=== PATIENT | male | born 1965 | race Caucasian/White ===

== ENCOUNTER 2017-11-03 15:46 | Emergency (ER) | payer OTHER ==
[~2017-11-03] VITALS: Ht 182.9 cm; Wt 88.5 kg
[2017-11-03 15:48] VITALS: BP 133/81; PULSE 90; RESP 16; TEMP 97.8; O2SAT 95
--- NOTE | 2017-11-03 15:52 | PD ---
HPI Chief Complaint: Laceration/Skin Injury Time Seen by Provider: 15:49 Travel History International Travel<30 days: No Contact w/Intl Traveler<30days: No History of Present Illness HPI 52 year old male presents to the emergency department for evaluation of a laceration to the left lower leg that occurred just prior to arrival. Patient arrived via EMS. Patient states he was stepping off his boat trailer when a piece of metal cut his left lower leg. Patient denies any chronic medical problems and takes no prescribed medications. He states his pain is 2/10, aching, without radiation. He states his tetanus immunization is up to date. He denies any loss of range of motion or any other injury. Moderate severity. [facility] Social History Alcohol Use: Yes Tobacco Use: Yes Substance Use: No Allergies-Medications (Allergen,Severity, Reaction): Coded Allergies: No Known Allergies (Unverified , 11/03/17) Reported Meds & Prescriptions Reported Meds & Active Scripts Active Bactroban Topical (Mupirocin) 22 Gm Cream 1 Applic TOPICAL BID Keflex (Cephalexin) 500 Mg Capsule 500 Mg PO Q8H 10 Days Ibuprofen 800 Mg Tab 800 Mg PO TID PRN Review of Systems Except as stated in HPI: all other systems reviewed are Neg Physical Exam Narrative GENERAL: Well-nourished, well-developed male patient, afebrile. SKIN: Focused skin assessment warm/dry. Patient has a 15 cm laceration to the left lower leg in a J-shape. It extends through the subcutaneous tissue, but not into the muscle. No active bleeding. HEAD: Normocephalic. Atraumatic. EYES: No scleral icterus. No injection or drainage. NECK: Supple, trachea midline. No JVD or lymphadenopathy. CARDIOVASCULAR: Regular rate and rhythm without murmurs, gallops, or rubs. Left pedal pulse 2+. RESPIRATORY: Breath sounds equal bilaterally. No accessory muscle use. Lung sounds are clear to auscultation. MUSCULOSKELETAL: No cyanosis, or edema. Patient has full ROM of all digits of the left foot and of the left ankle. BACK: No obvious deformity. Data Data Last Documented VS Vital Signs Date Time Temp Pulse Resp B/P (MAP) Pulse Ox O2 Delivery O2 Flow Rate FiO2 11/03/17 15:48 97.8 90 16 133/81 (98) 95 Orders Orders Acetamin-Hydrocod 325-5 Mg (Two Dot 5-325 (11/03/17 16:00) Lidocai-Epi 1%-1:100,000 Inj (Xylocaine- (11/03/17 16:00) MDM Medical Decision Making Medical Screen Exam Complete: Yes Emergency Medical Condition: Yes Medical Record Reviewed: Yes Differential Diagnosis laceration vs. tendon laceration vs. foreign body Narrative Course 52 year old male presents to the emergency department for evaluation of a laceration to his left lower leg that occurred just prior to arrival. Patient has a 15 cm laceration in the shape of a J to the left lower leg. He gives verbal consent for laceration repair. Patient will be discharged with a prescription for Ibuprofen for pain and Keflex for prophylaxis. Patient is instructed on proper wound care. The patient was discharged in stable condition with instructions, including return instructions and follow up instructions. Procedures Procedure Narrative LACERATION LOCATION: left lower leg LENGTH: 15 cm NUMBER OF STITCHES/CONNIE: 13 simple interrupted sutures, 2 vertical mattress sutures REPAIR: The area of the laceration was prepped with Betadine and sterilely draped. The laceration was infiltrated with 1% lidocaine with epinephrine. The wound was copiously irrigated and explored without evidence of foreign body, tendon injury or neurovascular injury. The wound was closed using 3-0 Prolene. This was a single layer repair. A sterile dressing was applied. The patient was advised to keep the dressing clean and dry. Patient tolerated the procedure well. Diagnosis Primary Impression: Leg laceration Qualified Codes: S81.812A - Laceration without foreign body, left lower leg, initial encounter Referrals: Primary Care Physician call for appointment Patient Instructions: Care For Your Stitches (ED), General Instructions, Laceration (ED), Narcotic given in the ED Departure Forms: Tests/Procedures, Work Release Enter return to work date: Nov 06, 2017 Additional Instructions: Clean laceration twice daily with soap and water and apply prescribed antibiotic ointment. Keep clean and dry. No swimming or hot tubs until healed. Take antibiotic as directed until gone. Take Ibuprofen as directed as needed with food for pain. Suture removal in 10-14 days. You may follow up with your primary care physician or return here for this. Return to the emergency department for any acute, worsening of symptoms. Med/Other Pt SpecificInfo: Prescription(s) given Scripts Doxycycline Hyclate (Doxycycline Hyclate) 100 Mg Cap 100 MG PO BID for Infection, #20 CAP 0 Refills Prov: Mary Ruelas 11/03/17 Mupirocin Topical (Bactroban Topical) 22 Gm Cream 1 APPLIC TOPICAL BID for Mgmt Bacterial Infection, #1 TUBE 0 Refills Prov: Mary Ruelas 11/03/17 Ibuprofen (Ibuprofen) 800 Mg Tab 800 MG PO TID Y for PAIN SCALE 1 TO 10, #21 TAB 0 Refills Prov: Mary Ruelas 11/03/17 Disposition: 01 DISCHARGE HOME Condition: Stable Mary Ruelas Nov 03, 2017 15:52
[2017-11-03] MEDS ORDERED: IBUP1TAB7 PO (15:58)
[2017-11-03] MEDS ORDERED: CEPH-460 PO ×2 (15:58→16:00)
[2017-11-03] MEDS ORDERED: MUPI2%T TOPICAL (16:00)
[2017-11-03] MEDS ORDERED: LIDOCAINE 1%/EPINEPHrine 1:100,000 SOLN 20 ML VIAL INFIL ONE (16:00)
[2017-11-03] MEDS ORDERED: ACETAMINOPHEN/HYDROcodone 325 MG/5 MG TAB PO ONE (16:00)
[2017-11-03] MEDS ORDERED: DOXY100C PO (17:12)
== END 2017-11-03 17:21 | disposition home or self-care (01) ==
LOC: PHEFT 15:46
DX: S81.812A Laceration without foreign body, left lower leg, initial encounter (principal); W22.8XXA Striking against or struck by other objects, initial encounter; Y93.39 Activity, other involving climbing, rappelling and jumping off; Z72.0 Tobacco use
CPT/HCPCS: 12005